=== PATIENT | male | born 1940 | race Caucasian/White ===

== ENCOUNTER 2017-05-17 18:53 | Emergency (ER) | payer OTHER, BC ==
[2017-05-17 19:10] VITALS: TEMP 98.1; BMI 26.6
--- NOTE | 2017-05-17 20:18 | PDOC ---
History of Present Illness - History of Present Illness Initial Comments: 05/17/17 20:57 Patient is a 77 year old male with significant medical hx of VT, CAD s/p stent, HLD, BPH who is presenting to the ED with complaint of hematuria for several weeks. The patient reports hes had chronic hematuria after having a procedure on his prostate in 2010; patient does not know the name of the procedure. Hes been having blood in his urine on and off since. Patient reports his symptoms returned over the past three weeks and worsened the past two days, with heavy blood in his urine and passing clots. Patient last seen his urologist two weeks ago and was prescribed finasteride. He has a follow up appointment on 05/30/17. Denies fever, chills, abdominal pain, abdominal distention, back pain, nausea, vomiting, diarrhea, or rash. Allergies: Penicillins Surgical Hx: Stent x1 (2010), bilateral cataract surgery Social Hx: Former smoker (patient quit 50 years ago), social alcohol use, patient denies recreational drug use PCP: Zion Tomlin MD Shoe Dresser: Fabio Munoz MD Urologist: Kolby Brantley MD <Daria Silveira - Last Filed: 05/17/17 20:57> <Tamra Jarrett - Last Filed: 05/18/17 02:07> - General Chief Complaint: Urinary Problem Stated Complaint: HEMATURIA Time Seen by Provider: 05/17/17 20:08 Past History <Daria Silveira - Last Filed: 05/17/17 20:57> - Past Medical History Cardiac Disorders: Yes (VT) HTN: Yes Hypercholesterolemia: Yes Other medical history: enlarged prostate - Surgical History Cardiac Surgery: Yes (STENT X1) - Psycho/Social/Smoking Cessation Hx Anxiety: No Suicidal Ideation: No Smoking Status: No Smoking History: Former smoker Have you smoked in the past 12 months: No Number of Cigarettes Smoked Daily: 0 If you are a former smoker, when did you quit?: 50YRS AGO Information on smoking cessation initiated: No Hx Alcohol Use: No Drug/Substance Use Hx: No Substance Use Type: None <Tamra Jarrett - Last Filed: 05/18/17 02:07> - Past Medical History Allergies/Adverse Reactions: Allergies Allergy/AdvReac Type Severity Reaction Status Date / Time Penicillins Allergy Swelling Verified 05/17/17 19:10 Home Medications: Ambulatory Orders Aspirin Coated [Ecotrin -] 81 mg PO DAILY tablet.ec 08/20/16 Atorvastatin Ca [Lipitor] 10 mg PO HS tablet 08/20/16 Finasteride 5 mg PO DAILY 08/20/16 Losartan Potassium [Cozaar -] 25 mg PO DAILY tablet 08/20/16 Metoprolol Succinate [Toprol XL -] 25 mg PO DAILY tab.sr.24h 08/20/16 Review of Systems - Review of Systems Comments:: 05/17/17 20:57 CONSTITUTIONAL: Absent: fever, chills, diaphoresis, generalized weakness, malaise, loss of appetite HEENT: Absent: rhinorrhea, nasal congestion, throat pain, throat swelling, difficulty swallowing, mouth swelling, ear pain, eye pain, visual changes CARDIOVASCULAR: Absent: chest pain, syncope, palpitations, irregular heart rate, lightheadedness , peripheral edema RESPIRATORY: Absent: cough, shortness of breath, dyspnea with exertion, orthopnea, wheezing, stridor, hemoptysis GASTROINTESTINAL: Absent: abdominal pain, abdominal distension, nausea, vomiting, diarrhea, constipation, melena, hematochezia GENITOURINARY: Present: hematuria Absent: dysuria, frequency, urgency, hesitancy, flank pain, genital pain MUSCULOSKELETAL: Absent: myalgia, arthralgia, joint swelling SKIN: Absent: rash, itching, pallor HEMATOLOGIC/IMMUNOLOGIC: Absent: easy bleeding, easy bruising, lymphadenopathy, frequent infections ENDOCRINE: Absent: unexplained weight gain, unexplained weight loss, heat intolerance, cold intolerance NEUROLOGIC: Absent: headache, focal weakness or paresthesia, dizziness, unsteady gait, seizure, mental status changes, bladder or bowel incontinence. PSYCHIATRIC: Absent: anxiety, depression, suicidal or homicidal ideation, hallucinations <Andrez Silveiraa - Last Filed: 05/17/17 20:57> *Physical Exam - Vital Signs Last Vital Signs Temp Pulse Resp BP Pulse Ox 98.1 F 74 18 121/56 99 05/17/17 19:05 05/17/17 19:05 05/17/17 19:05 05/17/17 19:05 05/17/17 19:05 - Physical Exam Comments: 05/17/17 20:58 GENERAL: Well developed, well nourished. Awake and alert. No acute distress. HEENT: Normocephalic, atraumatic. PERRLA, EOMI. No conjunctival pallor. Sclera are non- icteric. Moist mucous membranes. Oropharynx is clear. NECK: Supple. Full ROM. No JVD. Carotid pulses 2+ and symmetric, without bruits. No thyromegaly. No lymphadenopathy. CARDIOVASCULAR: Regular rate and rhythm. No murmurs, rubs, or gallops. Distal pulses are 2+ and symmetric. PULMONARY: No evidence of respiratory distress. Lungs clear to auscultation bilaterally. No wheezing, rales or rhonchi. ABDOMINAL: Soft. Non-tender. Non-distended. No rebound or guarding. No organomegaly. Normoactive bowel sounds. MUSCULOSKELETAL: Normal range of motion at all joints. No bony deformities or tenderness. No CVA tenderness. EXTREMITIES: No cyanosis. No clubbing. No edema. No calf tenderness. SKIN: Warm and dry. Normal capillary refill. No rashes. No jaundice. NEUROLOGICAL: Alert, awake, appropriate. Cranial nerves 2-12 intact. Normal speech. Toes are down-going bilaterally. Gait is normal without ataxia. PSYCHIATRIC: Cooperative. Good eye contact. Appropriate mood and affect. <Daria Silveira - Last Filed: 05/17/17 20:57> - Vital Signs Last Vital Signs Temp Pulse Resp BP Pulse Ox 98.1 F 74 18 121/56 99 05/17/17 19:05 05/17/17 19:05 05/17/17 19:05 05/17/17 19:05 05/17/17 19:05 <Tamra Jarrett - Last Filed: 05/18/17 02:07> ED Treatment Course - LABORATORY CBC & Chemistry Diagram: 05/17/17 20:29 05/17/17 20:29 <Daria Silveira - Last Filed: 05/17/17 20:57> - LABORATORY CBC & Chemistry Diagram: 05/17/17 20:29 05/17/17 20:29 <Tamra Jarrett - Last Filed: 05/18/17 02:07> Medical Decision Making - Medical Decision Making 05/18/17 02:06 77-year-old man with a history of BPH who is followed by urologist presents with hematuria He did not want to come because evidently has an appointment with his urologist on the by his family members were concerned Patient does not have urinary retention and has been able to urinate. Urinalysis is negative for any urinary tract infection CBC is unremarkable Chemistries were reviewed and his electrolytes and kidney function were unremarkable Patient has no fever, chills, vomiting or flank pain Impression hematuria Plan patient is to keep his appointment with his urologist this month <Tamra Jarrett - Last Filed: 05/18/17 02:07> *DC/Admit/Observation/Transfer - Attestations Scribe Attestion: 05/17/17 20:58 Documentation prepared by Daria Silveira, acting as medical cash poster for Tamra Jarrett MD. <Daria Silveira - Last Filed: 05/17/17 20:57> <Tamra Jarrett - Last Filed: 05/18/17 02:07> Diagnosis at time of Disposition: Hematuria - Discharge Dispostion Disposition: HOME Condition at time of disposition: Stable - Referrals Referrals: Zion Neves MD [Primary Care Provider] - - Patient Instructions Printed Discharge Instructions: DI for Hematuria Additional Instructions: please followup with your urologist this week
[2017-05-17 20:53] LABS: BASOPHIL 0.9 % (0-2.0); EOSINOPHIL 2.5 % (0-4.5); MCH 29.7 pg (25.7-33.7); MCHC 33.5 g/dl (32.0-35.9); MEAN CELL VOLUME 88.7 fl (80-96); MEAN PLT VOLUME 8.1 fl (7.5-11.1); NEUTROPHILS 57.7 % (42.8-82.8); PLATELET COUNT 199 K/MM3 (134-434); RDW 12.7 % (11.9-15.9); WHITE BLOOD COUNT 7.2 K/mm3 (4.0-10.0)
[2017-05-17 21:18] LABS: URINE APPEARANCE CLOUDY; URINE BILIRUBIN NEGATIVE (NEGATIVE); URINE COLOR YELLOW; URINE GLUCOSE (UA) NEGATIVE (NEGATIVE); URINE KETONE NEGATIVE (NEGATIVE); URINE LEUK ESTERASE NEGATIVE (NEGATIVE); URINE NITRITE NEGATIVE (NEGATIVE); URINE UROBILINOGEN NEGATIVE E.U./dl (0.2-1.0)
[2017-05-17 21:20] LABS: URINE BLOOD 3+ (NEGATIVE); URINE PROTEIN 1+ (NEGATIVE)
[2017-05-17 21:22] LABS: URINE MUCUS FEW; URINE RBC 66 /hpf (0-3); URINE WBC 5 /hpf (3-5)
[2017-05-17 21:30] LABS: ALK PHOS 116 U/L (45-117); ANION GAP 7 (8-16); BILIRUBIN,TOTAL 0.4 mg/dL (0.2-1.0); CALCIUM 8.9 mg/dL (8.5-10.1); CO2 28 mmol/L (21-32); CREATININE 1.2 mg/dL (0.7-1.3); GLUCOSE,RANDOM 115 mg/dL (74-106); SGOT/AST 24 U/L (15-37); SGPT/ALT 24 U/L (12-78); TOT PROT 7.4 g/dl (6.4-8.2)
[2017-05-17 22:41] VITALS: BP 118/72; PULSE 54
== END 2017-05-17 22:41 | disposition home or self-care (01) ==
LOC: JER 18:53
DX: Y83.8 Other surgical procedures as the cause of abnormal reaction of the patient, or of later complication, without mention of misadventure at the time of the procedure (principal); Y73.8 Miscellaneous gastroenterology and urology devices associated with adverse incidents, not elsewhere classified; I25.2 Old myocardial infarction; I25.10 Atherosclerotic heart disease of native coronary artery without angina pectoris; I10 Essential (primary) hypertension; Z95.5 Presence of coronary angioplasty implant and graft; N40.0 Benign prostatic hyperplasia without lower urinary tract symptoms
CPT/HCPCS: 36415; 80053; 81003; 81015; 85025; 99282-25

== ENCOUNTER 2017-06-26 18:34 | Emergency (ER) | payer OTHER, BC ==
[2017-06-26 18:39] VITALS: BMI 24.2
--- NOTE | 2017-06-26 18:46 | PDOC ---
History of Present Illness - General Chief Complaint: Lightheaded Stated Complaint: DIZZINESS Time Seen by Provider: 06/26/17 18:44 - History of Present Illness Initial Comments: 06/26/17 19:34 Patient is a 77 year old male with a history of HTN, GA s/p stenting, BPH who presents with acute onset of lightheadedness/dizziness. The patient reports onset of a sensation of lightheadedness and dizziness at 5:30pm this evening while getting up from watching TV. He states that when he closes his eyes, he feels a sensation that the room is spinning around him prompting his visit to the ED today. He endorses some associated nausea and denies ever having symptoms such as this before. He denies fevers, chills, chest pain, SOB, vision changes, abdominal pain, or changes with bowel movements. He does endorse hematuria which he is being followed by a urologist for. Past History - Past Medical History Allergies/Adverse Reactions: Allergies Allergy/AdvReac Type Severity Reaction Status Date / Time Penicillins Allergy Swelling Verified 06/26/17 18:36 Home Medications: Ambulatory Orders Aspirin Coated [Ecotrin -] 81 mg PO DAILY tablet.ec 08/20/16 Finasteride 5 mg PO DAILY 08/20/16 Metoprolol Succinate [Toprol XL -] 25 mg PO DAILY tab.sr.24h 08/20/16 Atorvastatin Ca [Lipitor] 40 mg PO HS 06/26/17 Losartan Potassium [Cozaar -] 50 mg PO DAILY 06/26/17 Meclizine HCl [Antivert -] 25 mg PO BID #30 tablet 06/26/17 Cardiac Disorders: Yes (GA) HTN: Yes Hypercholesterolemia: Yes Other medical history: enlarged prostate - Surgical History Cardiac Surgery: Yes (STENT X1) - Psycho/Social/Smoking Cessation Hx Anxiety: No Suicidal Ideation: No Smoking Status: No Smoking History: Never smoked Have you smoked in the past 12 months: No Number of Cigarettes Smoked Daily: 0 If you are a former smoker, when did you quit?: 50YRS AGO Information on smoking cessation initiated: No Hx Alcohol Use: No Drug/Substance Use Hx: No Substance Use Type: None Review of Systems - Review of Systems Constitutional: No: Chills, Fever HEENTM: No: Recent change in vision, Double Vision Respiratory: No: Cough, Shortness of Breath Cardiac (ROS): No: Chest Pain, Palpitations ABD/GI: Yes: Nausea. No: Constipated, Diarrhea, Vomiting : No: Burning, Dysuria Integumentary: No: Rash Neurological: Yes: Dizziness. No: Headache, Numbness, Tingling, Weakness *Physical Exam - Vital Signs Last Vital Signs Temp Pulse Resp BP Pulse Ox 97.7 F 57 L 18 157/80 100 06/26/17 18:36 06/26/17 18:36 06/26/17 18:36 06/26/17 18:36 06/26/17 18:36 - Physical Exam Comments: 06/26/17 19:58 General Appearance: Nourished. No Apparent Distress HEENT: EOMI, ELIZ. No Pharyngeal Erythema, Tonsillar Exudate, Tonsillar Erythema, Nasal Congestion Respiratory/Chest: Lungs Clear, Normal Breath Sounds. No Crackles, Rales, Rhonchi, Wheezing Cardiovascular: Regular Rhythm, Regular Rate. No Murmur, Gallop/S3, Gallop/S4 Gastrointestinal/Abdominal: Normal Bowel Sounds, Soft. No Guarding, Rebound, Tenderness Extremity: Normal Capillary Refill Integumentary: Normal Color, Dry, Warm Neurologic: burglar alarm installer II-XII NML intact, Fully Oriented, Alert, Normal Mood/Affect, Normal Response, Motor Strength 5/5. No Facial Droop, Normal Finger to Nose and villavicencio to heel. ED Treatment Course - LABORATORY CBC & Chemistry Diagram: 06/26/17 19:00 06/26/17 19:00 Medical Decision Making - Medical Decision Making 06/26/17 19:59 Patient is a 77 year old male with a history of GA s/p stenting who presents with lightheadedness/dizziness. Differential includes but is not limited to: BPV, Cerebellar infarct, Orthostatic hypotension, Vasovagal, anemia, ACS. Given the patient's history of sudden onset lightheadedness with associated nausea, it is likely his symptoms are due to BPV. However it is reasonable to evaluate for a cerebellar infarct with a head CT although less likely given his normal neurological exam and acute onset of symptoms. We will obtain a cbc, cmp , troponin, INR, UA to evaluate for other etiology such as anemia given his reported hematuria. 06/26/17 20:48 CBC, cmp, troponin, UA, INR and EKG are unremarkable. CT head was discussed with the radiologist and is negative for acute intracranial process. It is likely the patient's symptoms are due to either BPV or orthostatic hypotension. We will give the patient a small fluid bolus and meclazine and zofran and reevaluate. 06/26/17 21:23 Patient reports improvement in his symptoms. We are comfortable discharging the patient home at this time and the patient is agreeable with the plan. *DC/Admit/Observation/Transfer Diagnosis at time of Disposition: Vertigo - Discharge Dispostion Disposition: HOME Condition at time of disposition: Improved Admit: No - Prescriptions Prescriptions: Meclizine HCl [Antivert -] 25 mg PO BID #30 tablet - Referrals Referrals: Zion Neves MD [Primary Care Provider] - - Patient Instructions Printed Discharge Instructions: DI for Vertigo Additional Instructions: Please return to the ER if you experience concerning or worsening symptoms. Please call to follow up with your primary care provider to discuss your ER visit. - Attestations Physician Attestion: 06/26/17 21:05 I, Dr. Cortez Hernandez, attest that this document has been prepared under my direction and personally reviewed by me in its entirety. I further attest, that it accurately reflects all work, treatment, procedures and medical decision -making performed by me.
[2017-06-26 19:16] LABS: BASOPHIL 1.1 % (0-2.0); EOSINOPHIL 2.6 % (0-4.5); MCH 29.8 pg (25.7-33.7); MCHC 33.7 g/dl (32.0-35.9); MEAN CELL VOLUME 88.5 fl (80-96); NEUTROPHILS 55.9 % (42.8-82.8); PLATELET COUNT 182 K/MM3 (134-434); RDW 12.8 % (11.9-15.9); WHITE BLOOD COUNT 6.7 K/mm3 (4.0-10.0)
[2017-06-26 19:27] LABS: INR 1.12 (0.82-1.09); PROTHROMBIN TIME (PATIENT) 12.4 SEC (9.98-11.88)
[2017-06-26] MEDS ORDERED: MECLIZINE HCL 25 MG TABLET (FP) PO ONE (19:34)
[2017-06-26] MEDS ORDERED: MECLIZINE HCL 25 MG TABLET (FP) ONE (19:37)
[2017-06-26 19:39] LABS: ALBUMIN 3.8 g/dl (3.4-5.0); ALK PHOS 108 U/L (45-117); ANION GAP 7 (8-16); BILIRUBIN,TOTAL 0.4 mg/dL (0.2-1.0); CO2 30 mmol/L (21-32); CPK 220 IU/L (39-308); CREATININE 1.1 mg/dL (0.7-1.3); GLUCOSE,RANDOM 87 mg/dL (74-106); SGOT/AST 20 U/L (15-37); SGPT/ALT 21 U/L (12-78); TOT PROT 7.4 g/dl (6.4-8.2)
[2017-06-26 19:41] LABS: TROPONIN I < 0.02 ng/ml (0.00-0.05)
[2017-06-26 20:13] LABS: URINE APPEARANCE CLEAR; URINE BILIRUBIN NEGATIVE (NEGATIVE); URINE BLOOD NEGATIVE (NEGATIVE); URINE COLOR LTYELLOW; URINE GLUCOSE (UA) NEGATIVE (NEGATIVE); URINE KETONE NEGATIVE (NEGATIVE); URINE LEUK ESTERASE NEGATIVE (NEGATIVE); URINE NITRITE NEGATIVE (NEGATIVE); URINE PROTEIN NEGATIVE (NEGATIVE); URINE UROBILINOGEN NEGATIVE mg/dL (0.2-1.0)
[2017-06-26] MEDS ORDERED: ONDANSETRON 4 MG/2 ML VIAL IVPB ONE (20:38)
[2017-06-26] MEDS ORDERED: SODIUM CHLORIDE 0.9% 500 ML INFUS.BAG IV ONE (20:38)
[2017-06-26] MEDS ORDERED: ONDANSETRON 4 MG/2 ML VIAL ONE (20:53)
[2017-06-26 21:49] VITALS: BP 148/77; PULSE 62; TEMP 98
--- NOTE | 2017-06-27 13:27 | EKG ---
Test Reason : Blood Pressure : / mmHG Vent. Rate : 057 BPM Atrial Rate : 057 BPM P-R Int : 134 ms QRS Dur : 112 ms QT Int : 428 ms P-R-T Axes : 068 -40 -44 degrees QTc Int : 416 ms SINUS BRADYCARDIA LEFT AXIS DEVIATION INFERIOR INFARCT (CITED ON OR BEFORE 04-APR-2011) ABNORMAL ECG WHEN COMPARED WITH ECG OF 19-AUG-2016 16:34, NONSPECIFIC T WAVE ABNORMALITY NOW EVIDENT IN LATERAL LEADS CLINICAL CORRELATION IS RECOMMENDED Confirmed by LEON SORIANO, GALINA ([id number]) on 06/27/2017 1:26:32 PM Referred By: Confirmed By:GALINA QUINTERO MD
== END 2017-06-26 21:38 | disposition home or self-care (01) ==
LOC: JER 18:34
PROC: 3E033GC Introduction of Other Therapeutic Substance into Peripheral Vein, Percutaneous Approach (ICD-10-PCS; principal; 2017-06-26)
DX: R42 Dizziness and giddiness (principal); I25.2 Old myocardial infarction; I10 Essential (primary) hypertension; N40.0 Benign prostatic hyperplasia without lower urinary tract symptoms; Z87.891 Personal history of nicotine dependence
CPT/HCPCS: 36415; 70450-TC; 80053; 81003; 82553; 84484; 85025; 85610; 93005; 93010; 99283-25

== ENCOUNTER 2018-12-28 07:14 | Emergency (ER) | payer OTHER, BC ==
[2018-12-28 07:20] VITALS: BP 148/68; PULSE 59; TEMP 97.8; BMI 24.3
--- NOTE | 2018-12-28 07:42 | PDOC ---
*Physical Exam - Vital Signs Last Vital Signs Temp Pulse Resp BP Pulse Ox 97.8 F 59 L 17 148/68 99 12/28/18 07:16 12/28/18 07:16 12/28/18 07:16 12/28/18 07:16 12/28/18 07:16 - Physical Exam Comments: 12/28/18 07:42 The patient was examined by [MANNY Ross] under my direct supervision. I personally evaluated the patient. I concur with the above findings and the plan of care. *DC/Admit/Observation/Transfer Diagnosis at time of Disposition: Fall, Sprain of shoulder, right - Discharge Dispostion Disposition: HOME Condition at time of disposition: Improved - Referrals Referrals: Zion Neves MD [Primary Care Provider] - - Patient Instructions Printed Discharge Instructions: DI for Shoulder Sprain Additional Instructions: Your x-rays and CAT scan were normal. Take Tylenol or extra strength Tylenol as needed for pain. Follow-up with your PMD as needed - Post Discharge Activity
[2018-12-28] MEDS ORDERED: ACETAMINOPHEN 325 MG TABLET (FP) PO ONE (07:44)
[2018-12-28] MEDS ORDERED: ACETAMINOPHEN 325 MG TABLET (FP) ONE ×2 (07:49→07:50)
--- NOTE | 2018-12-28 08:30 | PDOC ---
History of Present Illness - General Chief Complaint: Injury Stated Complaint: FALL/PAIN Time Seen by Provider: 12/28/18 07:33 History Source: Patient - History of Present Illness Occurred: reports: this morning Pain Location: reports: back, neck, upper extremity Method of Injury: Yes: fall Past History - Past Medical History Allergies/Adverse Reactions: Allergies Allergy/AdvReac Type Severity Reaction Status Date / Time Penicillins Allergy Swelling Verified 12/28/18 07:19 Home Medications: Ambulatory Orders Aspirin Coated [Ecotrin -] 81 mg PO DAILY tablet.ec 08/20/16 Finasteride 5 mg PO DAILY 08/20/16 Metoprolol Succinate [Toprol XL -] 25 mg PO DAILY tab.sr.24h 08/20/16 Atorvastatin Ca [Lipitor] 40 mg PO HS 06/26/17 Losartan Potassium [Cozaar -] 50 mg PO DAILY 06/26/17 Meclizine HCl [Antivert -] 25 mg PO BID #30 tablet 06/26/17 Meclizine HCl [Antivert -] 25 mg PO TID #30 tablet 06/26/17 Cardiac Disorders: Yes (MT, Stent) COPD: No HTN: Yes Hypercholesterolemia: Yes - Surgical History Cardiac Surgery: Yes (STENT X1) - Suicide/Smoking/Psychosocial Hx Smoking Status: No Smoking History: Never smoked Have you smoked in the past 12 months: No Number of Cigarettes Smoked Daily: 0 If you are a former smoker, when did you quit?: 50YRS AGO Information on smoking cessation initiated: No Hx Alcohol Use: No Drug/Substance Use Hx: No Substance Use Type: None Review of Systems - Review of Systems Respiratory: No: Shortness of Breath Cardiac (ROS): No: Chest Pain ABD/GI: No: Nausea, Vomiting, Abdominal cramping Musculoskeletal: Yes: Back Pain, Joint Pain. No: Joint Swelling, Neck Pain *Physical Exam - Vital Signs Last Vital Signs Temp Pulse Resp BP Pulse Ox 97.8 F 59 L 17 148/68 99 12/28/18 07:16 12/28/18 07:16 12/28/18 07:16 12/28/18 07:16 12/28/18 07:16 - Physical Exam General Appearance: Yes: Appropriately Dressed. No: Apparent Distress HEENT: positive: Normal Voice Neck: positive: Supple. negative: Tender, Decreased range of motion Respiratory/Chest: positive: Lungs Clear, Normal Breath Sounds. negative: Respiratory Distress Cardiovascular: positive: Regular Rate, S1, S2 Gastrointestinal/Abdominal: positive: Soft. negative: Tender Musculoskeletal: positive: Vertebral Tenderness (along T and LS spine) Extremity: positive: Normal Inspection, Tender (no deformity or joint swelling, +ttp over lateral deltoid w/ LROM to shoulder joint 2/2 pain, NVI) Integumentary: positive: Dry, Warm Neurologic: positive: Fully Oriented, Alert, Normal Mood/Affect, Motor Strength 5/5 Moderate Sedation - Procedure Monitoring Vital Signs: Procedure Monitoring Vital Signs Temperature 97.8 F 12/28/18 07:16 Pulse Rate 59 L 12/28/18 07:16 Respiratory Rate 17 12/28/18 07:16 Blood Pressure 148/68 12/28/18 07:16 O2 Sat by Pulse Oximetry (%) 99 12/28/18 07:16 ED Treatment Course - RADIOLOGY Radiology Studies Ordered: Category Date Time Status HEAD CT WITHOUT CONTRAST [CT] Stat CT Scan 12/28/18 07:40 Taken RIBS BILATERAL [RAD] Stat Radiology 12/28/18 07:43 Ordered SPINE-LUMBAR SACRAL [RAD] Stat Radiology 12/28/18 07:43 Ordered SPINE-THORACIC [RAD] Stat Radiology 12/28/18 07:42 Ordered - Medications Given in the ED: ED Medications Discontinued Medications Generic Name Dose Route Start Last Admin Trade Name Freq PRN Reason Stop Dose Admin Acetaminophen 650 mg 12/28/18 07:44 12/28/18 07:52 Tylenol - PO 12/28/18 07:45 650 mg ONCE ONE Administration Medical Decision Making - Medical Decision Making 12/28/18 08:21 78-year-old male, history of BPH, HLD, hypertension, CAD with 1 stent, MT, on Plavix, here for evaluation after fall this a.m. Patient states he slipped on steps outside his home and fell down one flight onto his back mostly. Now complaining of diffuse back and right upper extremity pain. Denies hitting head and no LOC, headache, dizziness, blurry vision, nausea, vomiting. Denies any other injuries at this time. Ablw to ambulate since. No chest pain or dizziness prior to fall see exam Multiple injuries s/p mechanical fall Denies head injury and no LOC On plavix No e/o serious injury No focal deficit -pain control -CTH -XRs -reassess -anticipate dc 12/28/18 10:07 CT head negative as discussed with Dr. Ho who also reviewed films. X- rays without evidence of fracture. Asians and family aware. DC with over-the- counter pain medication as needed. Patient to follow-up with his PMD *DC/Admit/Observation/Transfer Diagnosis at time of Disposition: Fall Qualifiers: Encounter type: initial encounter Qualified Code(s): W19.XXXA - Unspecified fall, initial encounter Sprain of shoulder, right Qualifiers: Encounter type: initial encounter Shoulder sprain type: unspecified sprain Qualified Code(s): S43.401A - Unspecified sprain of right shoulder joint, initial encounter - Discharge Dispostion Disposition: HOME Condition at time of disposition: Improved - Referrals Referrals: Zion Neves MD [Primary Care Provider] - - Patient Instructions Printed Discharge Instructions: DI for Shoulder Sprain Additional Instructions: Your x-rays and CAT scan were normal. Take Tylenol or extra strength Tylenol as needed for pain. Follow-up with your PMD as needed - Post Discharge Activity
== END 2018-12-28 10:32 | disposition home or self-care (01) ==
LOC: JER 07:14
DX: S43.401A Unspecified sprain of right shoulder joint, initial encounter (principal); W10.9XXA Fall (on) (from) unspecified stairs and steps, initial encounter; Y93.89 Activity, other specified; Y92.89 Other specified places as the place of occurrence of the external cause; N40.0 Benign prostatic hyperplasia without lower urinary tract symptoms; E78.5 Hyperlipidemia, unspecified; Z95.5 Presence of coronary angioplasty implant and graft; I25.10 Atherosclerotic heart disease of native coronary artery without angina pectoris; Z79.01 Long term (current) use of anticoagulants
CPT/HCPCS: 70450-TC; 71111-TC-FY; 72070-TC-FY; 72100-TC-FY; 73030-TC-RT-FY; 99282-25

== ENCOUNTER 2019-09-14 18:52 | Emergency (ER) | payer OTHER, BC ==
--- NOTE | 2019-09-14 18:56 | PDOC ---
Rapid Medical Evaluation Time Seen by Provider: 09/14/19 18:55 Medical Evaluation: Allergies Allergy/AdvReac Type Severity Reaction Status Date / Time Penicillins Allergy Swelling Verified 12/28/18 07:19 09/14/19 18:55 I have performed a brief in-person evaluation of this patient. The patient presents with a chief complaint of: Lifted a heavy garbage bag today , now R shoulder pain. denies SOb/chest pain Pertinent physical exam findings: decreased ROM to R shoulder I have ordered the following: x-ray The patient will proceed to the ED for further evaluation. Discharge Disposition - Diagnosis Shoulder pain - Referrals - Patient Instructions - Post Discharge Activity
[2019-09-14 18:59] VITALS: BP 162/72; PULSE 70; TEMP 98; BMI 23.6
--- NOTE | 2019-09-14 19:18 | PDOC ---
History of Present Illness - General Chief Complaint: Pain, Acute Stated Complaint: RT SHOULDER PAIN Time Seen by Provider: 09/14/19 18:55 History Source: Patient - History of Present Illness Initial Comments: 09/14/19 19:13 Chief complaint: Right shoulder injury Patient is 79-year-old male with history of CAD, AL, has stents, not on Plavix or aspirin who states she injured his right shoulder while lifting garbage. Has pain to the area. He has prior hx of rotator cuff injury to that same shoulder. GENERAL/CONSTITUTIONAL: No fever, weakness. dizziness HEAD, EYES, EARS, NOSE AND THROAT: No change in vision. No ear pain or discharge. No sore throat. CARDIOVASCULAR: No chest pain RESPIRATORY: No shortness of breath or cough GASTROINTESTINAL: No pain, nausea, vomiting, diarrhea or constipation GENITOURINARY: No dysuria MUSCULOSKELETAL: No neck or back pain, +right shoulder SKIN: No rash NEUROLOGIC: No headache, vertigo, loss of consciousness, or loss of sensation. GENERAL: The patient is awake, alert, and fully oriented, in no acute distress. HEAD: Normal with no signs of trauma. EYES: Pupils equal, round and reactive to light, sclera anicteric, conjunctiva clear. ENT: pharynx: no erythema, no exudate, uvula midline NECK: supple CHEST: clear, nontender, rr ABD: soft, nontender BACK: no tenderness or signs of injury EXTREMITIES: Right upper extremity: Shoulder no deformity, no gross swelling, limited range of motion, able to passively lift about 45 to 50 degrees, painful. No other signs of injury, full range of motion to the rest of the extremity. Neurovascular intact. Rest of extremities, normal range of motion, no edema. NEUROLOGICAL: Normal speech, normal gait. SKIN: Warm, Dry 09/14/19 19:43 Past History - Past Medical History Allergies/Adverse Reactions: Allergies Allergy/AdvReac Type Severity Reaction Status Date / Time Penicillins Allergy Swelling Verified 12/28/18 07:19 Home Medications: Ambulatory Orders Aspirin Coated [Ecotrin -] 81 mg PO DAILY tablet.ec 08/20/16 Finasteride 5 mg PO DAILY 08/20/16 Metoprolol Succinate [Toprol XL -] 25 mg PO DAILY tab.sr.24h 08/20/16 Atorvastatin Ca [Lipitor] 40 mg PO HS 08/12/17 Losartan Potassium [Cozaar -] 50 mg PO DAILY 06/26/17 Meclizine HCl [Antivert -] 25 mg PO BID #30 tablet 06/26/17 Meclizine HCl [Antivert -] 25 mg PO TID #30 tablet 06/26/17 Oxycodone HCl/Acetaminophen [Percocet 5-325 mg Tablet] 1 tab PO Q6H PRN #20 tablet MDD 4 09/14/19 Cardiac Disorders: Yes ([place], Stent) COPD: No HTN: Yes Hypercholesterolemia: Yes - Surgical History Cardiac Surgery: Yes (STENT X1) - Immunization History Immunization Up to Date: No - Psycho Social/Smoking Cessation Hx Smoking Status: No Smoking History: Never smoked Have you smoked in the past 12 months: No Number of Cigarettes Smoked Daily: 0 If you are a former smoker, when did you quit?: 50YRS AGO Information on smoking cessation initiated: No Hx Alcohol Use: No Drug/Substance Use Hx: No Substance Use Type: None *Physical Exam - Vital Signs Last Vital Signs Temp Pulse Resp BP Pulse Ox 98.0 F 70 16 162/72 98 09/14/19 18:57 09/14/19 18:57 09/14/19 18:57 09/14/19 18:57 09/14/19 18:57 Medical Decision Making - Medical Decision Making 09/14/19 19:44 79-year-old male history of AL, stents, not on Plavix or aspirin who was lifting garbage and injured right shoulder, likely rotator cuff which has been previously injured. Patient has an orthopedist although he cannot remember his name. He will follow-up with him. X-ray does not show acute bony issue Patient would like something stronger than Motrin or Tylenol Discussed issues, findings, results, applicable medications and treatments and follow-up. All these were understood and all questions were answered Discharge - Discharge Information Problems reviewed: Yes Clinical Impression/Diagnosis: Right shoulder injury Qualifiers: Encounter type: initial encounter Qualified Code(s): S49.91XA - Unspecified injury of right shoulder and upper arm, initial encounter Condition: Stable Disposition: HOME - Admission No - Additional Discharge Information Prescriptions: Oxycodone HCl/Acetaminophen [Percocet 5-325 mg Tablet] 1 tab PO Q6H PRN #20 tablet MDD 4 PRN Reason: Pain Prescription Drug Monitoring Program (I-STOP) results: I-STOP not reviewed - Follow up/Referral Referrals: Zion Neves MD [Primary Care Provider] - - Patient Discharge Instructions Additional Instructions: You can apply ice for 20 minutes every 2 hours for the next 2 days Motrin 600 mg every 6 hours for pain. If still in pain you can take Percocet as prescribed Call the orthopedist tomorrow - Post Discharge Activity
== END 2019-09-14 23:12 | disposition home or self-care (01) ==
LOC: JERFT 18:52
DX: S49.81XA Other specified injuries of right shoulder and upper arm, initial encounter (principal); M25.511 Pain in right shoulder; X50.9XXA Other and unspecified overexertion or strenuous movements or postures, initial encounter; Y93.E9 Activity, other interior property and clothing maintenance; Y92.018 Other place in single-family (private) house as the place of occurrence of the external cause; Y99.8 Other external cause status; I25.10 Atherosclerotic heart disease of native coronary artery without angina pectoris; I10 Essential (primary) hypertension; Z95.5 Presence of coronary angioplasty implant and graft; I25.2 Old myocardial infarction; E78.00 Pure hypercholesterolemia, unspecified
CPT/HCPCS: 73030-TC-RT-FY; 99281-25

== ENCOUNTER 2019-11-20 21:38 | Emergency (ER) | payer OTHER, BC ==
--- NOTE | 2019-11-20 21:45 | PDOC ---
Rapid Medical Evaluation Medical Evaluation: Allergies Allergy/AdvReac Type Severity Reaction Status Date / Time Penicillins Allergy Swelling Verified 12/28/18 07:19 I have performed a brief in-person evaluation of this patient. The patient presents with a chief complaint of: CP x 1 week, across whole chest ; constant, nonexertional; has hx of CAD s/p PCI Pertinent physical exam findings: In NAD I have ordered the following: labs, ekg, cxr The patient will proceed to the ED for further evaluation. 11/20/19 21:44
[2019-11-20 21:48] VITALS: TEMP 97.6; BMI 23.6
--- NOTE | 2019-11-20 22:40 | PDOC ---
History of Present Illness - General Chief Complaint: Chest Pain Stated Complaint: CHEST PAIN Time Seen by Provider: 11/20/19 21:43 - History of Present Illness Initial Comments: 11/20/19 22:39 79 yo M PMH CAD, [place] s/p PCI in 2010, presenting with pleuritic chest pain. Reports that it has been present for the past week, only happens when he attempts to take a deep breath, 8/10. Grease Renderer is Dr. Fabio Munoz. Denies fevers/chills, recent travel, illness, SMITH, N/V, diaphoresis. Endorses pleuritic chest pain and SOB 2/2 deep breaths causing pain. Past History - Past Medical History Allergies/Adverse Reactions: Allergies Allergy/AdvReac Type Severity Reaction Status Date / Time Penicillins Allergy Swelling Verified 12/28/18 07:19 Home Medications: Ambulatory Orders Aspirin Coated [Ecotrin -] 81 mg PO DAILY tablet.ec 08/20/16 Finasteride 5 mg PO DAILY 08/20/16 Metoprolol Succinate [Toprol XL -] 25 mg PO DAILY tab.sr.24h 08/20/16 Atorvastatin Ca [Lipitor] 40 mg PO HS 06/26/17 Losartan Potassium [Cozaar -] 50 mg PO DAILY 06/26/17 Meclizine HCl [Antivert -] 25 mg PO BID #30 tablet 06/26/17 Meclizine HCl [Antivert -] 25 mg PO TID #30 tablet 06/26/17 Oxycodone HCl/Acetaminophen [Percocet 5-325 mg Tablet] 1 tab PO Q6H PRN #20 tablet MDD 4 09/14/19 Cardiac Disorders: Yes ([place], Stent) COPD: No HTN: Yes Hypercholesterolemia: Yes - Surgical History Cardiac Surgery: Yes (STENT X1) - Immunization History Immunization Up to Date: No - Psycho Social/Smoking Cessation Hx Smoking Status: No Smoking History: Never smoked Have you smoked in the past 12 months: No Number of Cigarettes Smoked Daily: 0 If you are a former smoker, when did you quit?: 50YRS AGO Information on smoking cessation initiated: No Hx Alcohol Use: No Drug/Substance Use Hx: No Substance Use Type: None Review of Systems - Review of Systems Comments:: 11/21/19 01:17 GENERAL/CONSTITUTIONAL: No fever or chills. No weakness. HEAD, EYES, EARS, NOSE AND THROAT: No change in vision. No ear pain or discharge. No sore throat. CARDIOVASCULAR: Pleuritic chest pain and shortness of breath 2/2 pain. RESPIRATORY: No cough, wheezing, or hemoptysis. GASTROINTESTINAL: No nausea, vomiting, diarrhea or constipation. GENITOURINARY: No dysuria, frequency, or change in urination. MUSCULOSKELETAL: No joint or muscle swelling or pain. No neck or back pain. SKIN: No rash NEUROLOGIC: No headache, vertigo, loss of consciousness, or change in strength/ sensation. ENDOCRINE: No increased thirst. No abnormal weight change. HEMATOLOGIC/LYMPHATIC: No anemia, easy bleeding, or history of blood clots. ALLERGIC/IMMUNOLOGIC: No hives or skin allergy *Physical Exam - Vital Signs Last Vital Signs Temp Pulse Resp BP Pulse Ox 97.6 F 68 16 157/66 100 11/20/19 21:44 11/20/19 21:44 11/20/19 21:44 11/20/19 21:44 11/20/19 21:44 - Physical Exam 11/21/19 01:18 Gen: well-developed, well-nourished, NAD Neuro: AAOX4, CN II-XII intact, FTN intact, EOMI, PERRLA, 5/5 strength, SILT HEENT: atraumatic, normocephalic, dry mucous membranes Neck: trachea midline, supple CV: regular rate, regular rhythm, no murmurs, rubs, or gallops Pulm: poor inspiratory effort, CTA b/l Abd: soft, non-distended, non-tender MSK: full ROM, intact pulses Extr: no edema, no deformities Skin: warm, dry ED Treatment Course - LABORATORY CBC & Chemistry Diagram: 11/20/19 22:50 11/20/19 22:45 Medical Decision Making - Medical Decision Making 11/20/19 22:11 Concern for ACS vs PE. - CBC, CMP - EKG, trop - CXR 11/20/19 23:11 CXR with no acute pathology. 11/21/19 01:00 EKG normal sinus at 67 bpm, Q waves in II, III, AVF consistent with old inferior infarct, unchanged from prior EKG on June 26, 2017. Discharge - Discharge Information Problems reviewed: Yes Clinical Impression/Diagnosis: Atypical chest pain Condition: Stable Disposition: HOME - Admission No - Follow up/Referral Referrals: Zion Neves MD [Primary Care Provider] - - Patient Discharge Instructions Patient Printed Discharge Instructions: DI for Atypical Chest Pain Additional Instructions: You were seen with chest pain. Your EKG, labs and imaging did not show any concerning findings. However, it is very important that you follow up with your primary care doctor within one week. Return to the ED if you develop worsening symptoms. - Post Discharge Activity
[2019-11-20 23:00] LABS: BASO % 1.2 % (0-2.0); EOS % 3.1 % (0-4.5); HEMATOCRIT 41.6 % (35.4-49); HEMOGLOBIN 13.9 GM/dL (11.7-16.9); LYMPH % 32.2 % (8-40); MCH 30.3 pg (25.7-33.7); MCHC 33.6 g/dl (32.0-35.9); MEAN CELL VOLUME 90.3 fl (80-96); MEAN PLT VOLUME 7.9 fl (7.5-11.1); MONO % 8.2 % (3.8-10.2); NEUT % 55.3 % (42.8-82.8); PLATELET COUNT 208 K/MM3 (134-434); WHITE BLOOD COUNT 7.5 K/mm3 (4.0-10.0)
[2019-11-20 23:29] LABS: BILIRUBIN,TOTAL 0.3 mg/dL (0.2-1); POTASSIUM 4.1 mmol/L (3.5-5.1); TOT PROT 7.5 g/dl (6.4-8.2)
[2019-11-21] MEDS ORDERED: ASPIRIN 325 MG TABLET PO ONE (00:08)
[2019-11-21] MEDS ORDERED: ASPIRIN 81 MG CHEWABLE TABLETS ONE (01:02)
[2019-11-21] MEDS ORDERED: ASPIRIN 325 MG ENTERIC COATED TABLET (FP) ONE (01:08)
[2019-11-21] MEDS ORDERED: SODIUM CHLORIDE 0.9% 500 ML INFUS.BAG IV ONE (01:15)
--- NOTE | 2019-11-21 02:00 | PDOC ---
Documentation entered by Neeta Mendiola SCRIBE, acting as scribe for Tamra Jarrett MD. Tamra Jarrett MD: This documentation has been prepared by the Maury dawson Nirvannie, SCRIBE, under my direction and personally reviewed by me in its entirety. I confirm that the documentation accurately reflects all work, treatment, procedures, and medical decision making performed by me. Attending Attestation - Resident Resident Name: Louise Castro - ED Attending Attestation I have performed the following: I have examined & evaluated the patient, The case was reviewed & discussed with the resident, I agree w/resident's findings & plan, Exceptions are as noted - HPI HPI: 11/21/19 00:03 The patient is a 79 year old male, with a significant past medical history of CAD (s/p [place], PCI stenting 2010), HTN, HLD, who presents to the emergency department with 1 week of 8/10 pleuritic chest pain with associated shortness of breath. Patient notes his symptoms only occur on inspiration and is different from prior SD. He denies any recent dysuria, frequency, urgency or hematuria. Allergies: Penicillins. Primary Care Physician: Dr. Neves - Physicial Exam PE: 11/21/19 01:57 Well-nourished well-developed 79-year-old male seated on the gurney surrounded by family Head normocephalic atraumatic Neck supple, no JVD, no bruits Lungs clear to auscultation bilaterally CVS regular rate rhythm S1-S2 no murmurs appreciated Abdomen is flat, nontender Skin warm and dry Extremities no pitting edema Neuro alert and oriented x3, ambulatory, no gross focal neuro deficits appreciated - Medical Decision Making 11/21/19 01:58 79-year-old male who has complaint of pleuritic chest pain for the past week The pain is reproducible and to the left of his sternum, and is nonradiating EKG is unchanged from his prior EKG 2017 CTA of the chest is negative for any pulmonary embolus, thoracic aortic dissection or aneurysm Lungs are clear The plan is to do a second cardiac enzyme and if it is negative the patient will be discharged home He did state he saw his project engineer Dr. Beverly 2 weeks ago for cardiology checkup
[2019-11-21 03:08] VITALS: BP 132/69; PULSE 67
--- NOTE | 2019-11-21 12:57 | EKG ---
Test Reason : Blood Pressure : / mmHG Vent. Rate : 067 BPM Atrial Rate : 067 BPM P-R Int : 136 ms QRS Dur : 106 ms QT Int : 398 ms P-R-T Axes : 067 -06 -41 degrees QTc Int : 420 ms NORMAL SINUS RHYTHM POSSIBLE LEFT ATRIAL ENLARGEMENT INFERIOR-POSTERIOR INFARCT (CITED ON OR BEFORE 04-APR-2011) ABNORMAL ECG WHEN COMPARED WITH ECG OF 26-JUN-2017 19:14, NO SIGNIFICANT CHANGE WAS FOUND Confirmed by MD Pérez Daniel ([id number]) on 11/21/2019 12:57:22 PM Referred By: Confirmed By:Cortez Pérez MD
== END 2019-11-21 03:06 | disposition home or self-care (01) ==
LOC: SUPCPDRO 21:38 → JER 21:38
DX: R07.89 Other chest pain (principal); I25.10 Atherosclerotic heart disease of native coronary artery without angina pectoris; I10 Essential (primary) hypertension; Z95.5 Presence of coronary angioplasty implant and graft; I25.2 Old myocardial infarction; E78.00 Pure hypercholesterolemia, unspecified
CPT/HCPCS: 36415; 71046-TC-FY; 71275-TC; 80053; 82550; 84484; 85025; 93005; 93010; 99284-25; Q9967

== ENCOUNTER 2020-02-12 11:03 | Emergency (ER) | payer OTHER, BC ==
[2020-02-12 11:07] VITALS: BP 130/52; PULSE 73; TEMP 98.5; BMI 22.8
[2020-02-12] MEDS ORDERED: ONDANSETRON 4 MG/2 ML VIAL ONE (12:08)
[2020-02-12] MEDS ORDERED: ONDANSETRON 4 MG/2 ML VIAL IVPUSH ONE (12:13)
[2020-02-12 12:15] LABS: BASO % 0.4 % (0-2.0); HEMOGLOBIN 13.3 GM/dL (11.7-16.9); LYMPH % 19.8 % (8-40); MCH 30.1 pg (25.7-33.7); MCHC 34.2 g/dl (32.0-35.9); MEAN PLT VOLUME 8.6 fl (7.5-11.1); MONO % 12.3 % (3.8-10.2); NEUT % 67.5 % (42.8-82.8); PLATELET COUNT 140 K/MM3 (134-434); RBC 4.44 M/mm3 (4.00-5.60); RDW 12.8 % (11.9-15.9); WHITE BLOOD COUNT 4.4 K/mm3 (4.0-10.0)
--- NOTE | 2020-02-12 12:19 | PDOC ---
History of Present Illness - General Chief Complaint: Pain, Acute Stated Complaint: POSSIBLE APPENDICITIS/VOMITING Time Seen by Provider: 02/12/20 11:58 History Source: Patient Exam Limitations: No Limitations - History of Present Illness Travel History: No Initial Comments: 02/12/20 12:15 HISTORY OF PRESENT ILLNESS: 79-year-old male past medical history of CAD status post stent 2010 who presents emergency department for evaluation of abdominal pain over the past 5 days. Patient reports he feels more nauseous than pain with intermittent sharp stabbing pains to his right lower quadrant. Presently patient denies any pain to his right lower quadrant. He reports having one episode of undigested food stuff vomitus without bleeding or bile noted. He denies any diarrhea or rectal bleeding. He denies testicular pain, dysuria, hematuria or penile discharge. No recent travel or sick contacts. PAST MEDICAL HISTORY: See HPI SURGICAL HISTORY: Denies ALLERGIES: PCN REVIEW OF SYSTEMS General/Constitutional: Denies fever or chills. Denies weakness, weight change. HEENT: Denies change in vision. Denies ear pain or discharge. Denies sore throat. Cardiovascular: Denies chest pain or shortness of breath. Respiratory: Denies cough, wheezing, or hemoptysis. Gastrointestinal: see HPI Genitourinary: Denies dysuria, frequency, or change in urination. Musculoskeletal: Denies joint or muscle swelling or pain. Denies neck or back pain. Skin and breasts: Denies rash or easy bruising. Neurologic: Denies headache, vertigo, loss of consciousness, or loss of sensation. Psychiatric: Denies depression or anxiety. Endocrine: Denies increased thirst. Denies abnormal weight change. Hematologic/Lymphatic: Denies anemia, easy bleeding, or history of blood clots. Allergic/Immunologic: Denies hives or skin allergy. Denies latex allergy. PHYSICAL EXAM General Appearance: Well-appearing, appropriately dressed. No apparent distress, no intoxication. Respiratory/Chest: Lungs CTAB. No shortness of breath, chest tenderness, respiratory distress, accessory muscle use. No crackles, rales, rhonchi, stridor, wheezing, dullness Cardiovascular: RRR. S1, S2. No JVD, murmur, bradycardia, tachycardia. Vascular Pulses: Dorsalis-Pedis (R): 2+, Dorsalis-Pedis (L): 2+ Gastrointestinal/Abdominal: Normal bowel sounds. Abdomen soft, non-distended. RLQ tenderness without rebound tenderness. No organomegaly, pulsatile mass, guarding, hernia, hepatomegaly, splenomegaly. Lymphatic: No adenopathy, tenderness. Past History - Past Medical History Allergies/Adverse Reactions: Allergies Allergy/AdvReac Type Severity Reaction Status Date / Time Penicillins Allergy Swelling Verified 02/12/20 11:07 Home Medications: Ambulatory Orders Aspirin Coated [Ecotrin -] 81 mg PO DAILY tablet.ec 08/20/16 Finasteride 5 mg PO DAILY 08/20/16 Metoprolol Succinate [Toprol XL -] 25 mg PO DAILY tab.sr.24h 08/20/16 Atorvastatin Ca [Lipitor] 40 mg PO HS 06/26/17 Losartan Potassium [Cozaar -] 50 mg PO DAILY 06/26/17 Meclizine HCl [Antivert -] 25 mg PO BID #30 tablet 06/26/17 Meclizine HCl [Antivert -] 25 mg PO TID #30 tablet 06/26/17 Oxycodone HCl/Acetaminophen [Percocet 5-325 mg Tablet] 1 tab PO Q6H PRN #20 tablet MDD 4 09/14/19 Cardiac Disorders: Yes ([place], Stent) COPD: No HTN: Yes Hypercholesterolemia: Yes - Surgical History Cardiac Surgery: Yes (STENT X1) - Immunization History Immunization Up to Date: No - Psycho Social/Smoking Cessation Hx Smoking Status: No Smoking History: Never smoked Have you smoked in the past 12 months: No Number of Cigarettes Smoked Daily: 0 If you are a former smoker, when did you quit?: 50YRS AGO Information on smoking cessation initiated: No Hx Alcohol Use: No Drug/Substance Use Hx: No Substance Use Type: None *Physical Exam - Vital Signs Last Vital Signs Temp Pulse Resp BP Pulse Ox 98.5 F 73 18 130/52 L 98 02/12/20 11:05 02/12/20 11:05 02/12/20 11:05 02/12/20 11:05 02/12/20 11:05 ED Treatment Course - LABORATORY CBC & Chemistry Diagram: 02/12/20 12:00 02/12/20 12:00 - RADIOLOGY Radiology Studies Ordered: Category Date Time Status ABDOMEN & PELVIS CT WITH CONTR [CT] Stat CT Scan 02/12/20 12:11 Ordered Medical Decision Making - Medical Decision Making 02/12/20 12:18 A/P: 79-year-old male with diffuse abdominal pain over 5 days with intermittent right lower quadrant pain Lungs clear to auscultation bilaterally RRR. No murmur, rub or gallop is noted Normoactive bowel sounds Right lower quadrant tenderness without rebound tenderness or guarding. Negative obturator, psoas and Rovsing signs Testicular exam is unremarkable Differential diagnosis includes but is not limited to: Appendicitis, UTI, CA, peritonitis, obstruction, perforation Labs including cardiac profile EKG Urinalysis, urine culture CT of the abdomen and pelvis with p.o. and IV contrast Zofran 4 mg IV push Reassess 02/12/20 13:54 Laboratory Tests 02/12/20 02/12/20 12:00 12:00 WBC 4.4 RBC 4.44 Hgb 13.3 Hct 39.0 MCV 88.0 MCH 30.1 MCHC 34.2 RDW 12.8 Plt Count 140 D MPV 8.6 Absolute Neuts (auto) 2.9 Neutrophils % 67.5 D Lymphocytes % 19.8 D Monocytes % 12.3 H Eosinophils % 0.0 D Basophils % 0.4 Nucleated RBC % 0 Sodium 133 L Potassium 4.1 Chloride 98 Carbon Dioxide 26 Anion Gap 8 BUN 13.6 Creatinine 1.2 Est GFR (CKD-EPI)AfAm 67.20 Est GFR (CKD-EPI)NonAf 57.98 Random Glucose 101 Calcium 8.1 L Total Bilirubin 0.5 AST 23 ALT 21 Alkaline Phosphatase 95 Creatine Kinase 96 Troponin I < 0.02 Total Protein 7.7 Albumin 3.6 Lipase 146 EKG sinus bradycardia with rate of 56. SC and QRS intervals are within normal limits. QTc 426 ms. Inverted T waves noted in leads II, III, aVF and V1. No significant change from previous EKG 11/20/2019. CT as read by Dr. Sequeira: Cholelithiasis. Prostate enlargement. No evidence of appendicitis or acute pathology within the abdomen or pelvis. As patient has negative Hernandez sign and normal LFTs I feel it is safe to discharge home with strict return precautions. Patient has been instructed to follow-up with his primary doctor for continued evaluation should symptoms worsen. I discussed the physical exam findings, ancillary test results and final diagnoses with the patient. I answered all of the patient's questions. The patient was satisfied with the care received and felt comfortable with the discharge plan and treatment plan. The patient will call their primary care physician within 24 hours to arrange follow-up and will return to the Emergency Department with any new, persistent or worsening symptoms. Portions of this note have been documented using voice recognition software. As a result, errors may occur in the community service officer process. Effort has been made to correct all grammatical and community service officer error, but some may have been missed which may produce sporadic inaccurate community service officer or nonsensical phrases. Discharge - Discharge Information Problems reviewed: Yes Clinical Impression/Diagnosis: Asymptomatic gallstones Condition: Fair Disposition: HOME - Admission No - Follow up/Referral Referrals: Zion Neves MD [Primary Care Provider] - - Patient Discharge Instructions Additional Instructions: Your CAT scan shows gallstones. The laboratory testing and the remainder of the CAT scan is unremarkable. It is important that you follow-up with your primary doctor for continued evaluation. Take Tylenol as needed for fevers and/or pain. Follow can conveyor feeder's instructions for appropriate dosage. Return to emergency department for any new or worsening symptoms. Thank you very much for choosing us to provide your emergent healthcare needs. - Post Discharge Activity
[2020-02-12 12:45] LABS: ALBUMIN 3.6 g/dl (3.4-5.0); ALK PHOS 95 U/L (45-117); ANION GAP 8 MMOL/L (8-16); BILIRUBIN,TOTAL 0.5 mg/dL (0.2-1); BLOOD UREA NITROGEN 13.6 mg/dL (7-18); CALCIUM 8.1 mg/dL (8.5-10.1); CHLORIDE 98 mmol/L (98-107); CO2 26 mmol/L (21-32); CREATININE 1.2 mg/dL (0.55-1.3); GLUCOSE,RANDOM 101 mg/dL (74-106); LIPASE 146 U/L (73-393); POTASSIUM 4.1 mmol/L (3.5-5.1); SGOT/AST 23 U/L (15-37); SGPT/ALT 21 U/L (13-61); SODIUM 133 mmol/L (136-145); TOT PROT 7.7 g/dl (6.4-8.2)
--- NOTE | 2020-02-13 10:04 | EKG ---
Test Reason : Blood Pressure : / mmHG Vent. Rate : 056 BPM Atrial Rate : 056 BPM P-R Int : 124 ms QRS Dur : 110 ms QT Int : 442 ms P-R-T Axes : 066 -16 -37 degrees QTc Int : 426 ms SINUS BRADYCARDIA INFERIOR INFARCT (CITED ON OR BEFORE 04-APR-2011) ABNORMAL ECG WHEN COMPARED WITH ECG OF 20-NOV-2019 21:43, NO SIGNIFICANT CHANGE WAS FOUND Confirmed by MD Beto, Cortez ([id number]) on 02/13/2020 10:04:28 AM Referred By: Confirmed By:Cortez Pérez MD
== END 2020-02-12 14:01 | disposition home or self-care (01) ==
LOC: JER 11:03
DX: K80.20 Calculus of gallbladder without cholecystitis without obstruction (principal)
CPT/HCPCS: 36415; 74177-TC; 80053; 82550; 83690; 84484; 85025; 93005; 93010; 99284-25; Q9967

== ENCOUNTER 2023-12-20 11:49 | Observation (INO) | payer OTHER, BC ==
[2023-12-20 12:02] VITALS: RESP 18
[2023-12-20] MEDS ORDERED: ACETAMINOPHEN INJECTION 100 ML IVPB ONE (15:27)
[2023-12-20] MEDS: ACETAMINOPHEN 1000 MG/100 ML BAG IVPB ONE (15:30)
[2023-12-20 15:36] LABS: BASO % 0.8 % (0-2.0); EOS % 1.5 % (0-4.5); HEMATOCRIT 34.9 % (35.4-49); HEMOGLOBIN 11.4 GM/dL (11.7-16.9); LYMPH % 20.7 % (8-40); MCHC 32.6 g/dl (32.0-35.9); MEAN CELL VOLUME 85.9 fl (80-96); MEAN PLT VOLUME 7.8 fl (7.5-11.1); MONO % 11.3 % (3.8-10.2); NEUT % 65.7 % (42.8-82.8); PLATELET COUNT 219 10^3/uL (134-434); RBC 4.06 M/mm3 (4.00-5.60); RDW 14.3 % (11.9-15.9); WHITE BLOOD COUNT 6.6 K/mm3 (4.0-10.0)
[2023-12-20 15:56] LABS: BLOOD UREA NITROGEN 10.5 mg/dL (7-18); CALCIUM 8.7 mg/dL (8.5-10.1); MAGNESIUM 2.3 mg/dL (1.8-2.4)
[2023-12-20 16:00] LABS: CREATININE 0.8 mg/dL (0.55-1.3)
[2023-12-20 16:01] LABS: BILIRUBIN,TOTAL 0.4 mg/dL (0.2-1); TOT PROT 6.6 g/dl (6.4-8.2)
[2023-12-20 17:09] LABS: PH,URINE 5.5 (5.0-8.0); URINE APPEARANCE CLEAR; URINE BILIRUBIN NEGATIVE (NEGATIVE); URINE COLOR YELLOW; URINE GLUCOSE (UA) NEGATIVE (NEGATIVE); URINE KETONE 1+ (NEGATIVE); URINE LEUK ESTERASE NEGATIVE (NEGATIVE); URINE NITRITE NEGATIVE (NEGATIVE); URINE PROTEIN TRACE (NEGATIVE); URINE UROBILINOGEN 0.2 mg/dL (0.2-1.0)
[2023-12-20] MEDS ORDERED: LIDOCAINE 4% PATCH TP ONE (18:10)
[2023-12-20] MEDS: LIDOCAINE 4% PATCH TP ONE (18:32)
[2023-12-20] MEDS ORDERED: KETOROLAC TROMETHAMINE 15 MG/ML VIAL IVPUSH PRN (19:47)
[2023-12-20] MEDS: morphine SULFATE 4 MG/ML VIAL IVPUSH ONE (21:12)
[2023-12-20] MEDS: ONDANSETRON 4 MG/2 ML VIAL IVPUSH ONE (21:14)
[2023-12-20] MEDS ORDERED: ONDANSETRON 4 MG/2 ML VIAL ONE (21:15)
[2023-12-20] MEDS: LIDOCAINE PATCH REMOVAL MC SCH (22:13)
[2023-12-20] MEDS: ACETAMINOPHEN 1000 MG/100 ML BAG IVPB PRN (22:14)
[2023-12-20] MEDS ORDERED: KETOROLAC TROMETHAMINE 15 MG/ML VIAL ONE (22:16)
[2023-12-21 03:52] VITALS: BMI 19.8
[2023-12-21] MEDS ORDERED: KETOROLAC TROMETHAMINE 15 MG/ML VIAL IVPUSH PRN (06:00)
[2023-12-21 07:23] LABS: BASO % 0.8 % (0-2.0); EOS % 3.2 % (0-4.5); HEMATOCRIT 32.8 % (35.4-49); HEMOGLOBIN 10.9 GM/dL (11.7-16.9); LYMPH % 21.5 % (8-40); MCH 28.3 pg (25.7-33.7); MCHC 33.3 g/dl (32.0-35.9); MEAN CELL VOLUME 85.1 fl (80-96); MEAN PLT VOLUME 8.2 fl (7.5-11.1); MONO % 13.5 % (3.8-10.2); PLATELET COUNT 212 10^3/uL (134-434); RBC 3.85 M/mm3 (4.00-5.60); RDW 14.3 % (11.9-15.9); WHITE BLOOD COUNT 5.9 K/mm3 (4.0-10.0)
[2023-12-21] MEDS: ASPIRIN COATED 81 MG TABLET.EC PO SCH (10:21)
[2023-12-21] MEDS: metoPROLOL SUCCINATE 25 MG TAB.SR.24H (FP) PO SCH (10:21)
[2023-12-21] MEDS: LOSARTAN POTASSIUM 50 MG TABLET PO SCH (10:21)
[2023-12-21] MEDS: PANTOPRAZOLE 20 MG TABLET PO SCH (10:21)
[2023-12-21] MEDS: FINASTERIDE 5 MG TABLET (FP) PO SCH (10:21)
[2023-12-21] MEDS ORDERED: ACETAMINOPHEN 325 MG TABLET (FP) PO PRN (11:03)
[2023-12-21] MEDS ORDERED: ALBUTEROL SO4 2.5/IPRATROPIUM 0.5 INH SOL 3 ML VIAL.NEB. NEB PRN (11:05)
[2023-12-21] MEDS: DOCUSATE SODIUM 100 MG CAPSULE (FP) PO PRN (16:49)
[2023-12-21] MEDS: ATORVASTATIN CA 40 MG TABLET (FP) PO SCH (21:51)
[2023-12-22 07:24] LABS: BASO % 0.6 % (0-2.0); HEMATOCRIT 33.2 % (35.4-49); MCH 28.4 pg (25.7-33.7); MCHC 33.2 g/dl (32.0-35.9); MEAN CELL VOLUME 85.6 fl (80-96); MEAN PLT VOLUME 8.3 fl (7.5-11.1); MONO % 10.3 % (3.8-10.2); NEUT % 65.1 % (42.8-82.8); PLATELET COUNT 217 10^3/uL (134-434); RBC 3.87 M/mm3 (4.00-5.60); RDW 13.8 % (11.9-15.9); WHITE BLOOD COUNT 6.5 K/mm3 (4.0-10.0)
[2023-12-22 07:31] LABS: POTASSIUM 4.1 mmol/L (3.5-5.1)
[2023-12-22 07:43] LABS: BLOOD UREA NITROGEN 12.5 mg/dL (7-18); CALCIUM 8.6 mg/dL (8.5-10.1)
[2023-12-22 07:46] LABS: CREATININE 0.9 mg/dL (0.55-1.3)
[2023-12-22 12:02] VITALS: BP 137/60; PULSE 81; TEMP 98.1
== END 2023-12-22 12:45 | disposition home or self-care (01) ==
LOC: JER 11:49 → JERBED 17:41 → J4W 12-21 01:49
PROVIDERS: ADMIT Internal Medicine; ATTEND Nurse Practitioner
PROC: 3E033NZ Introduction of Analgesics, Hypnotics, Sedatives into Peripheral Vein, Percutaneous Approach (ICD-10-PCS; principal; 2023-12-20)
PROC: 3E03329 Introduction of Other Anti-infective into Peripheral Vein, Percutaneous Approach (ICD-10-PCS; 2023-12-20)
DX: J18.9 Pneumonia, unspecified organism (principal); R07.9 Chest pain, unspecified; I25.10 Atherosclerotic heart disease of native coronary artery without angina pectoris; I11.0 Hypertensive heart disease with heart failure; I25.2 Old myocardial infarction; M06.9 Rheumatoid arthritis, unspecified; Z88.0 Allergy status to penicillin; Z98.49 Cataract extraction status, unspecified eye; Z87.891 Personal history of nicotine dependence; Z86.73 Personal history of transient ischemic attack (TIA), and cerebral infarction without residual deficits
CPT/HCPCS: 0241U-QW; 36415; 71045-TC-FY; 80048; 80053; 81003; 83735; 84484; 85025; 87086; 87186; 93005; 93010; 94010; 96365; 96366; 96375; 96376; 99285-25; G0378; J0131

== ENCOUNTER 2024-05-25 02:28 | Emergency (ER) | payer OTHER, BC ==
[2024-05-25 02:32] VITALS: TEMP 97.8; BMI 23.5
[2024-05-25 03:07] VITALS: BP 184/83; PULSE 63; RESP 19
[2024-05-25] MEDS ORDERED: LOSARTAN POTASSIUM 50 MG TABLET ONE (03:18)
[2024-05-25] MEDS: LOSARTAN POTASSIUM 50 MG TABLET PO ONE (03:20)
== END 2024-05-25 03:47 | disposition home or self-care (01) ==
LOC: JER 02:28
DX: I16.0 Hypertensive urgency (principal); I10 Essential (primary) hypertension; B02.9 Zoster without complications; Z87.891 Personal history of nicotine dependence
CPT/HCPCS: 99283-25

== ENCOUNTER 2024-07-27 12:23 | Emergency (ER) | payer OTHER, BC ==
[2024-07-27 12:29] VITALS: BP 143/74; PULSE 68; RESP 18; TEMP 97.6; BMI 22.1
[2024-07-27] MEDS ORDERED: ACETAMINOPHEN 325 MG TABLET (FP) ONE (13:30)
[2024-07-27] MEDS ORDERED: LIDOCAINE 4% PATCH TP ONE (13:30)
[2024-07-27] MEDS ORDERED: ACETAMINOPHEN 500 MG TABLET (FP) ONE (13:32)
[2024-07-27] MEDS: ACETAMINOPHEN 500 MG TABLET (FP) PO ONE (13:37)
[2024-07-27] MEDS: LIDOCAINE 4% PATCH TP ONE (13:37)
[2024-07-27] MEDS ORDERED: CYCLOBENZAPRINE HCL 5 MG TABLET ONE (13:41)
[2024-07-27] MEDS: CYCLOBENZAPRINE HCL 10 MG TABLET (FP) PO ONE (13:43)
[2024-07-27] MEDS: ACETAMINOPHEN 1000 MG/100 ML BAG IVPB ONE (14:13)
[2024-07-27 14:22] LABS: PH,URINE 6.5 (5.0-8.0); URINE APPEARANCE CLEAR; URINE BILIRUBIN NEGATIVE (NEGATIVE); URINE COLOR DK YELLOW; URINE GLUCOSE (UA) NEGATIVE (NEGATIVE); URINE KETONE TRACE (NEGATIVE); URINE LEUK ESTERASE NEGATIVE (NEGATIVE); URINE NITRITE NEGATIVE (NEGATIVE); URINE PROTEIN TRACE (NEGATIVE)
[2024-07-27] MEDS ORDERED: LIDOCAINE PATCH REMOVAL MC SCH (22:00)
== END 2024-07-27 15:02 | disposition home or self-care (01) ==
LOC: JER 12:23
DX: S39.012A Strain of muscle, fascia and tendon of lower back, initial encounter (principal); X58.XXXA Exposure to other specified factors, initial encounter
CPT/HCPCS: 81003; 87086; 99283-25

== ENCOUNTER 2024-07-31 09:57 | Observation (INO) | payer OTHER, BC ==
[2024-07-31] MEDS ORDERED: KETOROLAC TROMETHAMINE 15 MG/ML VIAL ONE (10:57)
[2024-07-31] MEDS: KETOROLAC TROMETHAMINE 15 MG/ML VIAL IVPUSH ONE (11:14)
[2024-07-31 11:38] LABS: BASO % 0.4 % (0-2.0); EOS % 0.5 % (0-4.5); HEMOGLOBIN 10.7 GM/dL (11.7-16.9); LYMPH % 13.6 % (8-40); MCHC 33.3 g/dl (32.0-35.9); MEAN CELL VOLUME 90.2 fl (80-96); MEAN PLT VOLUME 7.4 fl (7.5-11.1); MONO % 10.3 % (3.8-10.2); NEUT % 75.2 % (42.8-82.8); PLATELET COUNT 244 10^3/uL (134-434); RBC 3.55 M/mm3 (4.00-5.60); RDW 13.7 % (11.9-15.9); WHITE BLOOD COUNT 8.8 K/mm3 (4.0-10.0)
[2024-07-31 11:47] LABS: INR 1.01 (0.83-1.09); PROTHROMBIN TIME (PATIENT) 11.6 SEC (9.7-13.0)
[2024-07-31 11:48] LABS: CALCIUM 9.1 mg/dL (8.5-10.1)
[2024-07-31 11:49] LABS: BLOOD UREA NITROGEN 15.4 mg/dL (7-18); MAGNESIUM 2.4 mg/dL (1.8-2.4)
[2024-07-31 11:50] LABS: ACTIVATED PTT 34.8 SECONDS (25.2-36.5)
[2024-07-31 11:52] LABS: CREATININE 0.9 mg/dL (0.55-1.3)
[2024-07-31 11:53] LABS: BILIRUBIN,TOTAL 0.6 mg/dL (0.2-1)
[2024-07-31 11:54] LABS: TOT PROT 6.6 g/dl (6.4-8.2)
[2024-07-31 11:57] LABS: N-TERMINAL BNP 615.2 pg/ml (5-450)
[2024-07-31 12:51] LABS: PH,URINE 6.5 (5.0-8.0); URINE APPEARANCE CLEAR; URINE BILIRUBIN 1+ (NEGATIVE); URINE COLOR DK YELLOW; URINE GLUCOSE (UA) NEGATIVE (NEGATIVE); URINE KETONE TRACE (NEGATIVE); URINE LEUK ESTERASE NEGATIVE (NEGATIVE); URINE NITRITE NEGATIVE (NEGATIVE); URINE PROTEIN TRACE (NEGATIVE)
[2024-07-31] MEDS ORDERED: ASPIRIN 81 MG CHEWABLE TABLETS ONE (13:26)
[2024-07-31] MEDS: ASPIRIN 81 MG CHEWABLE TABLETS PO ONE (13:28)
[2024-07-31] MEDS ORDERED: ACETAMINOPHEN INJECTION 100 ML ONE (14:45)
[2024-07-31] MEDS: ACETAMINOPHEN 1000 MG/100 ML BAG IVPB ONE (15:02)
[2024-07-31] MEDS: ATORVASTATIN CA 40 MG TABLET (FP) PO SCH (21:51)
[2024-07-31] MEDS: DONEPEZIL HCL 5 MG TABLET (FP) PO SCH (21:51)
[2024-07-31] MEDS: LOSARTAN POTASSIUM 50 MG TABLET PO SCH (21:52)
[2024-07-31] MEDS ORDERED: FAMOTIDINE 20 MG TABLET PO SCH (22:00)
[2024-07-31 23:44] VITALS: BMI 22.2
[2024-08-01 08:32] LABS: HEMATOCRIT 30.7 % (35.4-49); HEMOGLOBIN 10.2 GM/dL (11.7-16.9); MCHC 33.1 g/dl (32.0-35.9); MEAN CELL VOLUME 90.7 fl (80-96); MEAN PLT VOLUME 7.4 fl (7.5-11.1); PLATELET COUNT 252 10^3/uL (134-434); RBC 3.39 M/mm3 (4.00-5.60); RDW 13.2 % (11.9-15.9); WHITE BLOOD COUNT 6.4 K/mm3 (4.0-10.0)
[2024-08-01 08:37] LABS: POTASSIUM 4.4 mmol/L (3.5-5.1)
[2024-08-01 08:42] LABS: CALCIUM 9.1 mg/dL (8.5-10.1)
[2024-08-01 08:43] LABS: BLOOD UREA NITROGEN 15.5 mg/dL (7-18)
[2024-08-01 08:46] LABS: CREATININE 0.9 mg/dL (0.55-1.3)
[2024-08-01] MEDS: ENOXAPARIN NA (PORCINE) 40 MG/0.4 ML DISP.SYRIN SQ SCH (09:40)
[2024-08-01] MEDS: predniSONE 5 MG TABLET (UD) PO SCH (09:40)
[2024-08-01] MEDS: RIFAMPIN 300 MG CAPSULE PO SCH (09:41)
[2024-08-01] MEDS: FAMOTIDINE 20 MG TABLET PO SCH (09:42)
[2024-08-02] MEDS: LEFLUNOMIDE 10 MG TABLET PO SCH (06:23)
[2024-08-02 08:10] LABS: BASO % 0.5 % (0-2.0); EOS % 1.6 % (0-4.5); HEMATOCRIT 32.1 % (35.4-49); HEMOGLOBIN 10.7 GM/dL (11.7-16.9); LYMPH % 18.7 % (8-40); MCH 29.9 pg (25.7-33.7); MCHC 33.3 g/dl (32.0-35.9); MEAN CELL VOLUME 89.9 fl (80-96); MEAN PLT VOLUME 7.4 fl (7.5-11.1); MONO % 9.6 % (3.8-10.2); NEUT % 69.6 % (42.8-82.8); PLATELET COUNT 266 10^3/uL (134-434); RBC 3.57 M/mm3 (4.00-5.60); RDW 13.2 % (11.9-15.9); WHITE BLOOD COUNT 7.2 K/mm3 (4.0-10.0)
[2024-08-02 08:24] LABS: POTASSIUM 4.1 mmol/L (3.5-5.1)
[2024-08-02 08:27] LABS: BLOOD UREA NITROGEN 15.1 mg/dL (7-18); CALCIUM 8.9 mg/dL (8.5-10.1)
[2024-08-02 08:28] LABS: MAGNESIUM 2.4 mg/dL (1.8-2.4)
[2024-08-02 08:31] LABS: CREATININE 0.8 mg/dL (0.55-1.3)
[2024-08-02] MEDS: predniSONE 10 MG TABLET (UD) PO SCH (09:25)
[2024-08-02 10:25] VITALS: BP 146/65; PULSE 80; RESP 16; TEMP 98.6
== END 2024-08-02 15:12 | disposition home or self-care (01) ==
LOC: JER 09:57 → JERBED 15:02 → J4S 18:48
PROVIDERS: ADMIT Internal Medicine; ATTEND Nurse Practitioner
PROC: 3E033NZ Introduction of Analgesics, Hypnotics, Sedatives into Peripheral Vein, Percutaneous Approach (ICD-10-PCS; principal; 2024-07-31)
PROC: 3E023GC Introduction of Other Therapeutic Substance into Muscle, Percutaneous Approach (ICD-10-PCS; 2024-07-31)
PROC: 3E0333Z Introduction of Anti-inflammatory into Peripheral Vein, Percutaneous Approach (ICD-10-PCS; 2024-07-31)
DX: M06.9 Rheumatoid arthritis, unspecified (principal); I11.9 Hypertensive heart disease without heart failure; A15.8 Other respiratory tuberculosis; E78.5 Hyperlipidemia, unspecified; I25.2 Old myocardial infarction; N40.0 Benign prostatic hyperplasia without lower urinary tract symptoms; Z95.5 Presence of coronary angioplasty implant and graft; Z90.49 Acquired absence of other specified parts of digestive tract; Z88.0 Allergy status to penicillin
CPT/HCPCS: 0241U-QW; 36415; 71046-TC-FY; 72070-TC-FY; 72100-TC-FY; 76775-TC; 80048; 80053; 81003; 83036; 83735; 83880; 84484; 85025; 85027; 85610; 85730; 86480; 86704; 87086; 87340; 93005; 93010; 93306-TC; 96372; 96374; 96375; 99285-25; G0378; J0131

== ENCOUNTER 2025-05-14 09:58 | Observation (INO) | payer OTHER, BC ==
[2025-05-14 10:57] LABS: BG HCT 35.0 % (35.4-49); VENOUS BASE EXCESS -2.2 mmol/L (-2-2); VENOUS O2 SATURATION 45.0 % (70-80); VENOUS PCO2 50.1 mmHg (38-52); VENOUS PH 7.307 (7.310-7.410)
[2025-05-14 10:58] LABS: ABSOLUTE IMMATURE GRANULOCYTES 0.03 x10^3/uL (0.0-0.031); BASOPHILS # 0.03 x10^3/uL (0.01-0.08); EOSINOPHIL % 0.5 % (0.8-7.0); EOSINOPHILS # 0.04 x10^3/uL (0.04-0.54); MCHC 30.8 g/dl (32.3-36.5); MEAN CELL VOLUME 90.9 fl (79.0-92.2); MEAN PLT VOLUME 10.5 fl (9.4-12.4); MONOCYTE # 0.63 x10^3/uL (0.30-0.82); MONOCYTE % 7.3 % (5.3-12.2); RDW 13.7 % (12.6-16.6)
[2025-05-14 11:05] LABS: INR 1.15 (0.83-1.09); PROTHROMBIN TIME (PATIENT) 12.5 SEC (9.7-13.0)
[2025-05-14 11:08] LABS: ACTIVATED PTT 33.5 SECONDS (25.2-36.5)
[2025-05-14] MEDS ORDERED: ACETAMINOPHEN INJECTION 100 ML ONE (11:29)
[2025-05-14] MEDS: ACETAMINOPHEN 1000 MG/100 ML BAG IVPB ONE (11:32)
[2025-05-14 12:01] VITALS: BMI 20.9
[2025-05-14 12:14] LABS: CO2 28.0 mmol/L (21-32); GLUCOSE,RANDOM 112.0 mg/dL (74-106)
[2025-05-14 12:17] LABS: CREATININE 0.9 mg/dL (0.55-1.3); SGOT/AST 14.0 U/L (15-37); SGPT/ALT 14.0 U/L (13-61)
[2025-05-14 12:18] LABS: TOT PROT 6.8 g/dl (6.4-8.2)
[2025-05-14 12:19] LABS: ALK PHOS 113.0 U/L (45-117)
[2025-05-14 12:22] LABS: N-TERMINAL BNP 2120.5 pg/ml (5-450)
[2025-05-14] MEDS ORDERED: FUROSEMIDE 40 MG/4 ML INJECTABLE VIAL ONE (15:13)
[2025-05-14] MEDS: FUROSEMIDE 40 MG/4 ML INJECTABLE VIAL IVPUSH ONE (15:35)
[2025-05-14] MEDS ORDERED: ACETAMINOPHEN 500 MG TABLET (FP) PO PRN (15:52)
[2025-05-14] MEDS ORDERED: ROSUVASTATIN CA 5 MG TABLET ONE ×2 (18:22→21:25)
[2025-05-14] MEDS ORDERED: LOSARTAN POTASSIUM 50 MG TABLET ONE (18:23)
[2025-05-14] MEDS ORDERED: ASPIRIN COATED 81 MG TABLET.EC ONE (18:26)
[2025-05-14] MEDS: LOSARTAN POTASSIUM 50 MG TABLET PO SCH (18:30)
[2025-05-14] MEDS: ASPIRIN COATED 81 MG TABLET.EC PO ONE (18:30)
[2025-05-14] MEDS: LIDOCAINE 5% TOPICAL PATCH TP ONE (18:31)
[2025-05-14] MEDS: LEFLUNOMIDE 10 MG TABLET PO SCH (18:32)
[2025-05-14] MEDS: ROSUVASTATIN CA 10 MG TABLET PO SCH ×2 (19:55→21:23)
[2025-05-14] MEDS: HEPARIN NA (PORCINE) 5,000 UNITS/ML 1ML VIAL SQ SCH (21:23)
[2025-05-14] MEDS: LIDOCAINE PATCH REMOVAL MC SCH (21:23)
[2025-05-14] MEDS: DONEPEZIL HCL 5 MG TABLET (FP) PO SCH (21:23)
[2025-05-14] MEDS ORDERED: HEPARIN NA (PORCINE) 5,000 UNITS/ML 1ML VIAL ONE (21:25)
[2025-05-14] MEDS ORDERED: DONEPEZIL HCL 5 MG TABLET (FP) ONE (21:25)
[2025-05-14 23:54] LABS: HCV DIAGNOSTIC IN-HOUSE W/RFLX NON-REACTIVE (NONREACTIVE)
[2025-05-15 02:15] VITALS: RESP 18
[2025-05-15 06:05] VITALS: PULSE 60
[2025-05-15 08:37] LABS: ABSOLUTE IMMATURE GRANULOCYTES 0.02 x10^3/uL (0.0-0.031); BASOPHILS # 0.03 x10^3/uL (0.01-0.08); EOSINOPHIL % 4.2 % (0.8-7.0); EOSINOPHILS # 0.20 x10^3/uL (0.04-0.54); MCHC 31.0 g/dl (32.3-36.5); MEAN CELL VOLUME 89.8 fl (79.0-92.2); MEAN PLT VOLUME 10.7 fl (9.4-12.4); MONOCYTE # 0.49 x10^3/uL (0.30-0.82); MONOCYTE % 10.3 % (5.3-12.2); RDW 13.6 % (12.6-16.6)
[2025-05-15] MEDS: FINASTERIDE 5 MG TABLET (FP) PO SCH (09:05)
[2025-05-15] MEDS: ASPIRIN 81 MG CHEWABLE TABLETS PO SCH (09:05)
[2025-05-15 09:17] LABS: GLUCOSE,RANDOM 101.0 mg/dL (74-106)
[2025-05-15 09:19] LABS: CO2 29.0 mmol/L (21-32)
[2025-05-15 09:20] LABS: CREATININE 1.0 mg/dL (0.55-1.3)
[2025-05-15 14:35] LABS: ERYTHROCYTE SEDIMENTATION RATE 71 mm/hr (0-20)
[2025-05-15 14:39] VITALS: BP 146/63; TEMP 97.9
[2025-05-15 17:42] LABS: HIV INTERPRETATION NEGATIVE (NEGATIVE)
== END 2025-05-15 18:42 | disposition home or self-care (01) ==
LOC: JER 09:58 → JERBED 15:10 → J4S 21:47
PROVIDERS: ADMIT Internal Medicine; ATTEND Internal Medicine
PROC: 3E033NZ Introduction of Analgesics, Hypnotics, Sedatives into Peripheral Vein, Percutaneous Approach (ICD-10-PCS; principal; 2025-05-14)
PROC: 3E033GC Introduction of Other Therapeutic Substance into Peripheral Vein, Percutaneous Approach (ICD-10-PCS; 2025-05-14)
PROC: 3E023GC Introduction of Other Therapeutic Substance into Muscle, Percutaneous Approach (ICD-10-PCS; 2025-05-14)
DX: J90 Pleural effusion, not elsewhere classified (principal); R07.89 Other chest pain; I25.10 Atherosclerotic heart disease of native coronary artery without angina pectoris; I35.0 Nonrheumatic aortic (valve) stenosis; I11.0 Hypertensive heart disease with heart failure; E78.5 Hyperlipidemia, unspecified; R07.1 Chest pain on breathing; Z95.5 Presence of coronary angioplasty implant and graft; I25.2 Old myocardial infarction; N40.0 Benign prostatic hyperplasia without lower urinary tract symptoms; Z87.891 Personal history of nicotine dependence; Z88.0 Allergy status to penicillin
CPT/HCPCS: 0241U-QW; 36415; 71045-TC-FY; 71275-TC; 80048; 80053; 82803; 83735; 83880; 84484; 85025; 85610; 85651; 85730; 86140; 86803; 86850; 86900; 86901; 87389; 93005; 93010; 96372; 96374; 96375; 99285-25; G0378; Q9967

== ENCOUNTER 2025-07-01 17:20 | Emergency (ER) | payer OTHER, BC ==
[2025-07-01 17:27] VITALS: TEMP 97.9; BMI 24.3
[2025-07-01 20:06] VITALS: BP 129/64; PULSE 66; RESP 18
== END 2025-07-01 20:37 | disposition home or self-care (01) ==
LOC: JER 17:20
DX: R51.9 Headache, unspecified (principal)
CPT/HCPCS: 70450-TC; 99284-25